=== PATIENT | male | born 1960 | race Caucasian/White ===

== ENCOUNTER 2024-03-11 13:04 | Outpatient (CLI) | payer BC, SELFPAY ==
--- NOTE | 2024-03-11 13:11 | CT_ITS ---
WS: [id number] CT CALCIUM SCORE REASON FOR VISIT: HYPERLIPIDEMIA; Coronary artery disease risk assessment COMPARISON: None TECHNIQUE: Noncontrast coronary CT in combination with quantitative analysis performed on a separate workstation were used to determine CACS (Agatston score) TOTAL EXAM DOSE: 125.14 mGy.cm ECG GATING: Prospective SCAN RANGE: Pulmonary artery bifurcation to Inferior aspect of heart COMPLICATIONS: None FINDINGS: Technical Quality/Examination Quality: Good Limitaiton: None OVERALL SCORES Total calcium score: 504 Total volume score: 443 mm3 Percentile: 75th-90th% ARTERY SCORES Left main coronary artery: 134 Left anterior descending artery: 114 Left circumflex artery: 135 Right coronary artery: 28 OTHER FINDINGS: Mediastinum: Normal. Thoracic aorta: Normal. Lungs: Tiny noncalcified nodule LEFT upper lobe. Upper Abdomen: Normal. MINIMAL: 1-10 MILD: 11-100 MODERATE: 101-400 SEVERE:>400 CT/CT heart w calcium score 69128 IMPRESSION: 1. Total calcium score of 504 between the 75th and 90th percentile for males b etween the ages of 60-64 2. Severe coronary artery disease based on the total calcium score GRADING OF CORONARY ARTERY DISEASE (BASED ON TOTAL CALCIUM SCORE) NO EVIDENCE OF CAD: 0 calcium score
== END 2024-03-11 13:05 | disposition home or self-care (01) ==
LOC: RAD 13:07
PROVIDERS: Family Provider Nurse Practitioner Family; PCP Nurse Practitioner Family; Visit Provider Family Medicine
DX: I25.10 Atherosclerotic heart disease of native coronary artery without angina pectoris (principal); E78.5 Hyperlipidemia, unspecified
CPT/HCPCS: 75571